=== PATIENT | male | born 1965 | race Two or more races ===

== ENCOUNTER 2024-08-09 06:15 | Day surgery (SDC) | payer OTHER ==
[2024-08-09] MEDS ORDERED: fentaNYL CITRATE 50 MCG/ML AMPUL IV PUSH ONE (17:45)
[2024-08-09] MEDS ORDERED: MIDAZOLAM HCL 2 MG/2 ML VIAL IV ONE (17:45)
[2024-08-09] MEDS ORDERED: DIPHENHYDRAMINE HCL 50 MG/ML VIAL 1ML IV ONE (17:45)
== END 2024-08-09 14:50 | disposition home or self-care (01) ==
LOC: AMB-ENDOS 06:15
PROVIDERS: ATTEND Internal Medicine
DX: R13.19 Other dysphagia (principal); K29.50 Unspecified chronic gastritis without bleeding; K21.9 Gastro-esophageal reflux disease without esophagitis; K22.89 Other specified disease of esophagus; K22.2 Esophageal obstruction

== ENCOUNTER 2024-11-05 06:07 | Day surgery (SDC) | payer OTHER ==
[2024-11-05] MEDS ORDERED: DIPHENHYDRAMINE HCL 50 MG/ML VIAL 1ML IV ONE (16:15)
[2024-11-05] MEDS ORDERED: fentaNYL CITRATE 50 MCG/ML AMPUL IV PUSH ONE (16:15)
[2024-11-05] MEDS ORDERED: MIDAZOLAM HCL 2 MG/2 ML VIAL IV ONE (16:15)
== END 2024-11-05 17:40 | disposition home or self-care (01) ==
LOC: AMB-ENDOS 06:07
PROVIDERS: ATTEND Internal Medicine
DX: R13.19 Other dysphagia (principal); K22.2 Esophageal obstruction; K22.89 Other specified disease of esophagus; K29.50 Unspecified chronic gastritis without bleeding